=== PATIENT | female | born 1970 | race Hispanic/Latino ===

== ENCOUNTER 2025-04-10 00:32 | Emergency (ER) | payer OTHER ==
[~2025-04-10] VITALS: Ht 154.9 cm; Wt 106.6 kg
[~2025-04-10 00:32] MED LIST: ADVIL200 MG PO; AUGMENTIN 875-1 EACH PO; CIPRO500 MG PO; COLACE100 MG PO; FLOMAX0.4 MG PO; KETOROLAC TROME10 MG PO; MUCINEX DM ER1 EACH PO; ONDANSETRON ODT4 MG PO; TYLENOL WITH C1 EACH PO; ULTRAM 50MG50 MG PO; ZYRTEC10 MG PO
[2025-04-10 01:00] VITALS: PULSE 84; RESP 18; TEMP 98.9
[2025-04-10 01:54] LABS: BASOPHILS # (AUTO) 0.1 (0.0-0.1); BASOPHILS % 0.5 % (0.0-1.0); EOSINOPHILS # (AUTO) 0.1 (0.0-0.4); EOSINOPHILS % 1.4 % (0.0-6.0); HEMATOCRIT 42.3 % (34.2-44.1); HEMOGLOBIN 13.7 g/dL (12.0-16.0); LYMPHOCYTES # (AUTO) 2.8 (1.0-3.2); LYMPHOCYTES % 28.6 % (18.0-39.1); MEAN CORPUSCULAR HEMOGLOBIN 27.3 pg (28-32); MEAN CORPUSCULAR HGB CONC 32.4 g/dL (31-35); MEAN CORPUSCULAR VOLUME 84.4 fL (81-99); MONOCYTES # (AUTO) 0.7 (0.2-0.8); MONOCYTES % 7.1 % (4.4-11.3); NEUTROPHILS % 62.1 % (38.7-80.0); PLATELET COUNT 325 x10e3/uL (140-360); RED BLOOD COUNT 5.01 x10e6/uL (3.6-5.1); RED CELL DISTRIBUTION WIDTH 14.6 % (11.7-14.4); WHITE BLOOD COUNT 9.69 x10e3/uL (4.8-10.8)
[2025-04-10 02:16] LABS: ALBUMIN 4.1 g/dL (3.5-5.0); ALBUMIN/GLOBULIN RATIO 1.2 (0.8-2.0); ANION GAP 15.8 mmol/L (8-16); BILIRUBIN,TOTAL 0.2 mg/dL (0.2-1.2); CALCIUM 8.9 mg/dL (8.4-10.2); CREATININE, SERUM 0.96 mg/dL (0.57-1.11); POTASSIUM 3.8 mmol/L (3.5-5.1); TOTAL PROTEIN 7.6 g/dL (6.5-8.1)
[2025-04-10] MEDS: ONDANSETRON HCL INJ 2MG/ML 2ML 2 MG/ML VIAL IV STA (02:20)
[2025-04-10] MEDS: SODIUM CHLORIDE 0.9% 1000ML 1,000 ML IV STA (02:20)
[2025-04-10] MEDS: KETOROLAC TROMETHAMINE 30 MG/ML VIAL IV STA (02:20)
[2025-04-10] MEDS ORDERED: FLOMAX0.4 MG PO (03:48)
[2025-04-10] MEDS ORDERED: AMOX TR-K CLV1 EAC2 PO (03:48)
[2025-04-10 04:15] VITALS: BP 127/84; PULSE 84; RESP 18; TEMP 98.6; O2SAT 98
== END 2025-04-10 04:20 | disposition home or self-care (01) ==
LOC: ER 01:28
DX: R10.9 Unspecified abdominal pain (principal); Z87.442 Personal history of urinary calculi
CPT/HCPCS: 36415; 74176; 80053; 83690; 85025; 99284; J1885; J2405; J7030